=== PATIENT | female | born 1990 | race Caucasian/White ===

== ENCOUNTER 2020-01-11 16:10 | Emergency (ER) | payer MEDICAID, SELFPAY ==
[2020-01-11] VITALS (7 sets, daily range): BP systolic 90–130; BP diastolic 47–102; PULSE 76–102; RESP 18–20; TEMP 36.8–36.9; O2SAT 96–100; BMI 38.8
--- NOTE | 2020-01-11 16:55 | ED.VISSUMM ---
- ER Visit Summary Date of Service: 01/11/20 Chief Complaint: Cough History of Present Illness: The patient is a 29 F no seen past medical history. Prior cholecystectomy and 3 prior C-sections. Patient states since Saturday just under a week ago that she is had a dry cough at times white phlegm. Patient states that she just feels tired and fatigued. With body aches. Fevers as high as 103. Today she has taken Tylenol and Motrin. She does work in an area fdc. Within the last week she has been tested for influenza, coronavirus and RSV all of which were negative. She denies nausea or vomiting. No diarrhea. No chest pain. Physical Examination: Young female vital signs stable afebrile. Pulse ox 98% on room air no signs of hypoxia. H EENT exam unremarkable. Moist extremities. Neck nontender no lymphadenopathy. Lungs dry cough, no rales, rhonchi or wheezing. Equal symmetrical. Heart regular rhythm rate about 100 no murmur. M soft nontender no bowel sounds no peritoneal signs. Extremities moves all 4. Calves nontender without edema or cords. She has a red rash in her right forearm and both thighs it blanches. No petechiae purpura. No sloughing of skin. Neurologically she is awake and alert with no focal motor deficits. Test Results: Chest x-ray single view read by myself and the radiologist shows no acute abnormality. Normal cardiac silhouette. Normal lung rolon. Emergency Department Course and Treatment: Patient had URI type symptoms. I do think she warrants repeat coronavirus testing and has been ordered. On repeat exam at 1835 patient doing well. She will be discharged home. Treatment Plan: Awaiting coronavirus test results. Off work until then. Disposition: Discharge Impression: Acute cough with dyspnea secondary to viral respiratory tract infection This note was generated with [employer] dictation software. It may contain incorrect words, spelling, and punctuation that were not noted in review of the chart prior to signing ED Disposition - Plan for ED Patient: Referrals: Care Physician,No Primary [Primary Care Provider] -
--- NOTE | 2020-01-11 17:30 | RAD_ITS ---
STUDY: X-RAY CHEST REASON FOR EXAM: Female, 29 years old. cough since last sat. body aches, fever and sob since tues. pt was tested for flu rsv and covid that was all neg. 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 TECHNIQUE: Single AP portable view of the chest. COMPARISON: None. FINDINGS: The lungs are clear and expanded. There is no demonstrated pleural abnormality. Normal size heart. Normal mediastinum and jules. Normal visualized pulmonary arteries. Normal visualized aortic arch and descending thoracic aorta. Normal visualized thoracic spine. Normal visualized ribs, clavicles, and shoulders. There is no demonstrated abnormality of the visualized soft tissue structures of the upper abdomen. RAD/Chest 1 View (Portable) IMPRESSION: Normal x-ray examination of the chest. Electronically Signed: Maikol Chase MD at 18:10 EDT , Service support ,
--- NOTE | 2020-01-11 18:38 | ED.DEP ---
ED Disposition - Plan for ED Patient: Disposition: Home or Assisted Living Instructions: ED URI Viral Referrals: Braden Ashley MD [STAFF PHYSICIAN] - 1 Week if not improving Additional Instructions: Your chest x-ray was normal today. We sent iyer virus testing again today. That will probably take 24 hours or longer to return. You will be notified of the results. Off work until coronavirus test results return.
--- NOTE | 2020-01-15 15:48 | ED.RN ---
PT NOTIFIED COVID NEGATIVE
== END 2020-01-11 18:50 | disposition home or self-care (01) ==
PROVIDERS: Emergency Provider Emergency Medicine
DX: J06.9 Acute upper respiratory infection, unspecified (principal)
CPT/HCPCS: 71045; 87635; 99282; U0004